=== PATIENT | female | born 1970 | race Caucasian/White ===

== ENCOUNTER 2021-04-10 12:48 | Emergency (ER) | payer BC, SELFPAY ==
[2021-04-10 14:12] LABS: Urine Blood Negative (Negative); Urine Glucose Negative (Negative); Urine Protein Negative (Negative); Urine pH 6.5 (5.0-7.0)
[2021-04-10] MEDS ORDERED: NA CHLORIDE 0.9% 1,000 ML ONE (14:17)
[2021-04-10 14:22] LABS: Hematocrit 40.2 % (36.0-45.0); Lymphocytes % 30.4 % (15.3-44.8); MPV 9.4 fL (7.6-11.3); RBC Red Blood Cell Count 4.58 M/uL (3.86-4.86)
[2021-04-10 14:23] LABS: Basophils % 1.3 % (0-1.3)
[2021-04-10 14:43] LABS: ALT/SGPT 83 U/L (12-78); AST/SGOT 73 U/L (15-37); Alkaline Phosphatase 57 U/L (45-117); BUN Blood Urea Nitrogen 6 mg/dL (7-18); Bicarbonate 28 mmol/L (21-32); Bilirubin Direct < 0.1 mg/dL (0-0.2); Bilirubin Total 0.4 mg/dL (0.2-1.0); Glucose Level 98 mg/dL (74-106); Lipase 97 U/L (73-393); Magnesium 1.6 mg/dL (1.8-2.4); Potassium 3.2 mmol/L (3.5-5.1); Protein, Total 7.8 g/dL (6.4-8.2); Sodium Level 139 mmol/L (136-145)
[2021-04-10 15:08] LABS: Urine Bacteria <20 /HPF (<20); Urine RBC NONE SEEN /HPF (NONE SEEN)
--- NOTE | 2021-04-10 16:28 | RAD REPORT ---
EXAM DESCRIPTION: CT - Abdomen Pelvis W Contrast - 04/10/2021 4:05 pm CLINICAL HISTORY: Abdominal pain. COMPARISON: None. TECHNIQUE: Computed axial tomography of the abdomen and pelvis was obtained. 100 cc Isovue-300 is ad ministered intravenously. Oral contrast was given. All CT scans are performed using dose optimization technique as appropriate and may include automated exposure control or mA/KV adjustment according to patient size. FINDINGS: Fatty liver. Cholecystectomy Small renal cysts. Spleen, adrenals and pancreas unremarkable Spleen, pancreas, adrenals and kidneys appear unremarkable . The appendix is normal caliber. There is no evidence of diverticulitis. The wall of predominantly transverse, descending and sigmoid colon is mildly to moderately thickened. This has the appearance of a colitis Small duodenal diverticulum IMPRESSION: Nelu-hj-owekmbko colitis
--- NOTE | 2021-04-10 17:17 | ER ---
Nurse's Notes [facility] Name: Kayleigh Mason Age: 50 yrs Sex: Female : 1970 Arrival Date: 04/10/2021 Time: 12:53 Bed 27 Private MD: Sriram Gill H Diagnosis: Infectious gastroenteritis and colitis, unspecified;Hypokalemia;Hypomagnesemia Presentation: 04/10 13:25 Chief complaint: Patient states: Diarrhea \T\ upper abdominal pain x 5 days, Dr. Gill sent jl7 me over. Coronavirus screen: Client denies travel out of the [place] in the last 14 days. diarrhea, Client presents with at least one sign or symptom that may indicate coronavirus-19. Standard/surgical mask placed on the client. Provider contacted for isolation considerations. Ebola Screen: No symptoms or risks identified at this time. Initial Sepsis Screen: Does the patient meet any 2 criteria? No. Patient's initial sepsis screen is negative. Does the patient have a suspected source of infection? No. Patient's initial sepsis screen is negative. Risk Assessment: Do you want to hurt yourself or someone else? Patient reports no desire to harm self or others. Onset of symptoms was April 05, 2021. Care prior to arrival: None. 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 - Social history:: Smoking status: Patient reports the use of cigarette tobacco products, denies chronic smoking, but will smoke occasionally. Screenin:12 Abuse screen: Denies threats or abuse. Denies injuries from another. Nutritional ld1 screening: No deficits noted. Tuberculosis screening: No symptoms or risk factors identified. Fall Risk None identified. Assessment: 14:12 General: Appears in no apparent distress. comfortable, Behavior is calm, cooperative, ld1 appropriate for age. Pain: Denies pain. Neuro: Level of Consciousness is awake, alert, obeys commands, Oriented to person, place, time, situation, Appropriate for age. Cardiovascular: Capillary refill < 3 seconds Patient's skin is warm and dry. Respiratory: Airway is patent Respiratory effort is even, unlabored, Respiratory pattern is regular, symmetrical. GI: Abdomen is flat, non-distended, Stools are reported to be diarrhea. Bowel sounds present X 4 quads. Abd is soft Abdomen is tender to palpation X 4 quads. Reports diarrhea. : No signs and/or symptoms were reported regarding the genitourinary system. EENT: No signs and/or symptoms were reported regarding the EENT system. Derm: No signs and/or symptoms reported regarding the dermatologic system. Musculoskeletal: No signs and/or symptoms reported regarding the musculoskeletal system. 15:30 Reassessment: Patient appears in no apparent distress at this time. Patient is alert, ld1 oriented x 3, equal unlabored respirations, skin warm/dry/pink. 16:29 Reassessment: Patient appears in no apparent distress at this time. No changes from ld1 previously documented assessment. Patient and/or family updated on plan of care and expected duration. Pain level reassessed. 17:40 Reassessment: Patient appears in no apparent distress at this time. No changes from ld1 previously documented assessment. Patient and/or family updated on plan of care and expected duration. Pain level reassessed. Patient is alert, oriented x 3, equal unlabored respirations, skin warm/dry/pink. Vital Signs: 13:25 BP 150 / 105; Pulse 85; Resp 15; Temp 97.2(TE); Pulse Ox 99% on R/A; Weight 81.19 kg jl7 (R); Pain 4/10; 14:12 BP 153 / 103; Pulse 82; Resp 18; Pulse Ox 100% on R/A; Pain 0/10; ld1 15:30 BP 146 / 99; Pulse 76; Resp 18; Pulse Ox 100% on R/A; ld1 16:30 BP 155 / 100; Pulse 86; Resp 18; Pulse Ox 100% on R/A; ld1 17:40 BP 158 / 84; Pulse 79; Resp 18; Pulse Ox 100% on R/A; ld1 ED Course: 12:53 Patient arrived in ED. mr 12:53 Sriram Gill DO is Private Physician. mr 13:29 Triage completed. jl7 13:30 Arm band placed on right wrist. jl7 13:35 Jesús Washington PA is PHCP. cp 13:35 Eb Caro MD is Attending Physician. cp 13:51 Coral Barahona, SAIGE is Primary Nurse. ld1 14:12 Patient has correct armband on for positive identification. Placed in gown. Bed in low ld1 position. Call light in reach. Side rails up X2. potline monitor on. Pulse ox on. NIBP on. Door closed. Noise minimized. Warm blanket given. 14:12 No provider procedures requiring assistance completed. Inserted saline lock: 20 gauge ld1 in right antecubital area, using aseptic technique. Blood collected. 14:49 Occult Blood Sent. ld1 14:49 Ova And Parasites Sent. ld1 14:49 Stool Culture Sent. ld1 14:49 Basic Metabolic Panel Sent. ld1 14:49 CBC with Diff Sent. ld1 14:49 Hepatic Function Sent. ld1 14:49 CDIFF Sent. ld1 14:49 Urine Microscopic Only Sent. ld1 16:05 CT Abd/Pelvis - PO and IV Contrast In Process Unspecified. EDMS 17:16 Manoj Colbert MD is Referral Physician. cp 17:47 IV discontinued, intact, bleeding controlled, No redness/swelling at site. ld1 Administered Medications: 14:12 Drug: NS 0.9% 1000 ml Route: IV; Rate: 1 bolus; Site: right antecubital; ld1 15:30 Follow up: Response: No adverse reaction ld1 17:20 Not Given (Physician Discretion): LevaQUIN (levofloxacin) 500 mg PO once cp 17:21 Drug: Magnesium Sulfate 1 grams Route: IVPB; Infused Over: 20 mins; Site: right ld1 antecubital; 17:50 Follow up: Response: No adverse reaction; IV Status: Completed infusion ld1 17:21 Drug: Potassium Effervescent Tablet 50 mEq Route: PO; ld1 17:45 Follow up: Response: No adverse reaction ld1 17:21 Drug: metroNIDAZOLE 500 mg Route: PO; ld1 17:45 Follow up: Response: No adverse reaction ld1 17:40 Not Given (Patient Refused): Cipro (ciprofloxacin) 500 mg PO once ld1 Outcome: 17:17 Discharge ordered by . cp 17:47 Discharged to home ambulatory. ld1 17:47 Condition: stable 17:47 Discharge instructions given to patient, Instructed on discharge instructions, follow up and referral plans. medication usage, Demonstrated understanding of instructions, follow-up care, medications. 17:47 Patient left the ED. ld1 Signatures: Dispatcher [employer] [facility] Flash Divine hou Jesús Washington PA PA cp Leal, Jahala, RN RN jl7 Coral Barahona RN RN ld1
--- NOTE | 2021-04-10 17:18 | EDPHYS ---
Physician Documentation [facility] Name: Kayleigh Mason Age: 50 yrs Sex: Female : 1970 Arrival Date: 04/10/2021 Time: 12:53 Bed 27 Private MD: Sriram Gill H ED Physician Eb Caro HPI: 04/10 13:45 This 50 yrs old Female presents to ER via Ambulatory with complaints of cp Abdominal Pain, Diarrhea. 13:45 The patient presents with abdominal pain in the upper abdomen. Onset: The cp symptoms/episode began/occurred 5 day(s) ago. Associated signs and symptoms: Pertinent positives: anorexia, diarrhea, Pertinent negatives: nausea and vomiting, blood in stools, constipation, fever. The symptoms are described as waxing/waning. 13:45 Severity of pain: in the emergency department the pain has improved moderately. 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 - Social history:: Smoking status: Patient reports the use of cigarette tobacco products, denies chronic smoking, but will smoke occasionally. ROS: 13:50 Constitutional: Negative for body aches, chills, fever, poor PO intake. cp 13:50 Cardiovascular: Negative for chest pain, palpitations. cp 13:50 Respiratory: Negative for cough, shortness of breath, wheezing. 13:50 Eyes: Negative for injury, pain, redness, and discharge. cp 13:50 Abdomen/GI: Positive for abdominal pain, diarrhea, Negative for vomiting, constipation, cp black/tarry stool, rectal bleeding. 13:50 Back: Positive for radiated pain. 13:50 Neuro: Negative for altered mental status, headache, weakness. 13:50 All other systems are negative. Exam: 13:55 Constitutional: The patient appears in no acute distress, alert, awake, cp non-diaphoretic, non-toxic, well developed, well nourished. 13:55 Head/Face: Normocephalic, atraumatic. cp 13:55 Eyes: Periorbital structures: appear normal, Conjunctiva: normal, no exudate, no injection, Sclera: no appreciated abnormality, Lids and lashes: appear normal, bilaterally. 13:55 ENT: External ear(s): are unremarkable, Nose: is normal, Mouth: Lips: moist, Oral mucosa: moist, Posterior pharynx: Airway: no evidence of obstruction, patent. 13:55 Chest/axilla: Inspection: normal. 13:55 Cardiovascular: Rate: normal, Rhythm: regular. 13:55 Respiratory: the patient does not display signs of respiratory distress, Respirations: normal, no use of accessory muscles, no retractions, labored breathing, is not present, Breath sounds: are clear throughout, no decreased breath sounds, no stridor, no wheezing. 13:55 Abdomen/GI: Inspection: abdomen appears normal, Bowel sounds: active, all quadrants, Palpation: soft, in all quadrants, mild abdominal tenderness, in the right upper quadrant and left upper quadrant, rebound tenderness, is not appreciated, voluntary guarding, is not appreciated, involuntary guarding, is not appreciated. 13:55 Back: pain, that is very mild, of the mid back area, ROM is normal. Vital Signs: 13:25 BP 150 / 105; Pulse 85; Resp 15; Temp 97.2(TE); Pulse Ox 99% on R/A; Weight 81.19 kg jl7 (R); Pain 4/10; 14:12 BP 153 / 103; Pulse 82; Resp 18; Pulse Ox 100% on R/A; Pain 0/10; ld1 15:30 BP 146 / 99; Pulse 76; Resp 18; Pulse Ox 100% on R/A; ld1 16:30 BP 155 / 100; Pulse 86; Resp 18; Pulse Ox 100% on R/A; ld1 17:40 BP 158 / 84; Pulse 79; Resp 18; Pulse Ox 100% on R/A; ld1 MDM: 13:44 Patient medically screened. cp 14:00 Differential diagnosis: appendicitis, bowel obstruction, diverticulitis, gastritis, cp pancreatitis, Ureterolithiasis, urinary tract infection. 17:15 Data reviewed: vital signs, nurses notes, lab test result(s), radiologic studies, CT cp scan, and as a result, I will discharge patient. 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 ED course: VSS. Patient appears nontoxic. Will discharge to home for continued monitoring. 04/10 13:50 Order name: Basic Metabolic Panel 04/10 13:50 Order name: CBC with Diff 04/10 13:50 Order name: Hepatic Function 04/10 13:50 Order name: Lipase; Complete Time: 15:21 04/10 13:50 Order name: Occult Blood 04/10 13:50 Order name: Ova And Parasites 04/10 13:50 Order name: Stool Culture 04/10 13:50 Order name: CDIFF 04/10 13:50 Order name: Urine Microscopic Only; Complete Time: 15:21 04/10 13:50 Order name: Magnesium; Complete Time: 15:21 04/10 15:22 Interpretation: Abnormal: MG 1.6. 04/10 13:51 Order name: Basic Metabolic Panel; Complete Time: 15:21 EDME 04/10 13:51 Order name: CBC with Automated Diff; Complete Time: 14:42 EDME 04/10 14:42 Interpretation: Reviewed. 04/10 13:51 Order name: Liver (Hepatic) Function; Complete Time: 15:21 EDME 04/10 15:22 Interpretation: Normal except: AST 73; ALT 83; GLOB 3.8. 04/10 14:12 Order name: Urine Dipstick-Ancillary; Complete Time: 14:42 EDME 04/10 13:50 Order name: IV Saline Lock; Complete Time: 14:12 04/10 13:50 Order name: Labs collected and sent; Complete Time: 14:12 04/10 13:50 Order name: Urine Dipstick-Ancillary (obtain specimen); Complete Time: 14:12 04/10 14:13 Order name: Urine Dipstick-Ancillary EDME 04/10 14:14 Order name: CT Abd/Pelvis - PO and IV Contrast; Complete Time: 16:39 cp Administered Medications: 14:12 Drug: NS 0.9% 1000 ml Route: IV; Rate: 1 bolus; Site: right antecubital; ld1 15:30 Follow up: Response: No adverse reaction ld1 17:20 Not Given (Physician Discretion): LevaQUIN (levofloxacin) 500 mg PO once cp 17:21 Drug: Magnesium Sulfate 1 grams Route: IVPB; Infused Over: 20 mins; Site: right ld1 antecubital; 17:50 Follow up: Response: No adverse reaction; IV Status: Completed infusion ld1 17:21 Drug: Potassium Effervescent Tablet 50 mEq Route: PO; ld1 17:45 Follow up: Response: No adverse reaction ld1 17:21 Drug: metroNIDAZOLE 500 mg Route: PO; ld1 17:45 Follow up: Response: No adverse reaction ld1 17:40 Not Given (Patient Refused): Cipro (ciprofloxacin) 500 mg PO once ld1 Disposition: 18:32 Co-signature as Attending Physician, Eb Caro MD. rn Disposition Summary: 04/10/21 17:17 Discharge Ordered Location: Home cp Problem: new cp Symptoms: have improved cp Condition: Stable cp Diagnosis - Infectious gastroenteritis and colitis, unspecified cp - Hypokalemia cp - Hypomagnesemia cp Followup: cp - With: Manoj Colbert MD - When: 2 - 3 days - Reason: Recheck today's complaints Discharge Instructions: - Discharge Summary Sheet cp - Food Choices to Help Relieve Diarrhea, Adult cp - Diarrhea, Adult cp - Colitis cp Forms: - Medication Reconciliation Form cp - Thank You Letter cp - Antibiotic Education cp - Prescription Opioid Use cp Prescriptions: - Zofran 4 mg Oral Tablet - take 1 tablet by ORAL route every 12 hours As needed; 20 tablet; Refills: 0, cp Product Selection Permitted - Potassium Chloride 10 mEq Oral capsule, extended release - take 1 tablet by ORAL route every 12 hours for 5 days; 10 tablet; Refills: 0, cp Product Selection Permitted - Metronidazole 500 mg Oral Tablet - take 1 tablet by ORAL route every 8 hours; 30 tablet; Refills: 0, Product cp Selection Permitted - Cipro 500 mg Oral Tablet - take 1 tablet by ORAL route every 12 hours for 10 days; 20 tablet; Refills: 0, cp Product Selection Permitted Signatures: Dispatcher [employer] Eb Landry MD MD rn Page, Corey, PA PA Lyndsay Lopez RN RN jl7 Dibbern, Coral, RN RN ld1 Corrections: (The following items were deleted from the chart) 13:51 13:44 This 50 yrs old Female presents to ER via Ambulatory with complaints of cp Abdominal Pain, Diarrhea. cp
[2021-04-10] MEDS ORDERED: POTASSIUM 25 MEQ EFFERV TAB ONE (17:31)
[2021-04-10] MEDS ORDERED: levoFLOXacin 500 MG TAB ONE (17:31)
[2021-04-10] MEDS ORDERED: metroNIDAZOLE 500 MG TABLET ONE (17:31)
[2021-04-10] MEDS ORDERED: MAGNESIUM SULFATE 1 gm IVPB 1 GM/100 ML BAG IV ONE (17:31)
[2021-04-10 18:06] VITALS: TEMP 97.2
[2021-04-10 18:11] VITALS: O2SAT 100
[2021-04-10 18:16] VITALS: BP 158/84
[2021-04-11 08:02] LABS: C.diff Antigen/Toxin Ag neg : Tox neg (NEG : NEG)
== END 2021-04-10 17:47 | disposition home or self-care (01) ==
LOC: ER 12:48
DX: A09 Infectious gastroenteritis and colitis, unspecified (principal); E87.6 Hypokalemia; E83.42 Hypomagnesemia; F17.210 Nicotine dependence, cigarettes, uncomplicated; Z88.0 Allergy status to penicillin
CPT/HCPCS: 36415; 74177; 80048; 80076; 81003; 81015; 82274; 83690; 83735; 85025; 87045; 87046; 87177; 87209; 87324; 87449; 96365; 99284; J3475; J7030; Q9967

== ENCOUNTER 2021-05-27 13:13 | Emergency (ER) | payer SELFPAY ==
[2021-05-27] MEDS ORDERED: HYDROCODONE/APAP 5/325 MG TAB ONE (15:37)
--- NOTE | 2021-05-27 16:10 | RAD REPORT ---
EXAM DESCRIPTION: RAD - Wrist Left 3 View - 05/27/2021 3:40 pm CLINICAL HISTORY: PAIN COMPARISON: No comparisons FINDINGS: No left wrist fracture identified. No malalignment. IMPRESSION: Unremarkable left wrist.
--- NOTE | 2021-05-27 16:31 | ER ---
Nurse's Notes [facility] Name: Kayleigh Mason Age: 50 yrs Sex: Female : 1970 Arrival Date: 05/27/2021 Time: 13:17 Bed DX1 Private MD: Diagnosis: Sprain of unspecified part of left wrist and hand Presentation: 05/27 14:05 Chief complaint: Patient states: L arm pain that began yesterday after putting a sale ss sign in a yard. Coronavirus screen: Client denies travel out of the [place] in the last 14 days. Ebola Screen: Patient denies exposure to infectious person. No symptoms or risks identified at this time. Initial Sepsis Screen: Does the patient meet any 2 criteria? No. Patient's initial sepsis screen is negative. Does the patient have a suspected source of infection? No. Patient's initial sepsis screen is negative. Risk Assessment: Do you want to hurt yourself or someone else? Patient reports no desire to harm self or others. Onset of symptoms was May 26, 2021. 14:05 Method Of Arrival: Ambulatory ss 14:05 Acuity: MONIQUE 4 ss Historical: - Allergies: 14:07 PENICILLINS; ss - PMHx: 14:07 Hypothyroidism; ibs; ss - PSHx: 14:07 Cholecystectomy; hysterectomy; Thyroidectomy; ss - Immunization history:: Client reports having NOT received the Covid vaccine. - Social history:: Smoking status: Patient reports the use of cigarette tobacco products, denies chronic smoking, but will smoke occasionally. Screenin:51 Abuse screen: Denies threats or abuse. Denies injuries from another. Nutritional ss screening: No deficits noted. Tuberculosis screening: Never had TB. Fall Risk None identified. Assessment: 14:51 General: Appears uncomfortable, Behavior is calm, cooperative. Pain: Complains of pain ss in left wrist and palmar aspect of left forearm Pain currently is 8 out of 10 on a pain scale. Neuro: Level of Consciousness is awake, alert, obeys commands, Oriented to person, place, time, situation. Cardiovascular: Pulses are palpable in right radial artery and left radial artery. Respiratory: Airway is patent Respiratory effort is even, unlabored, Respiratory pattern is regular, symmetrical. EENT: Oral mucosa is moist. Derm: Skin is intact, is healthy with good turgor, Skin is dry, Skin is pink, warm \T\ dry. normal. Musculoskeletal: Range of motion: limited in left wrist Swelling absent. Vital Signs: 13:50 BP 126 / 87; Pulse 85; Resp 17; Temp 96.8(TE); Pulse Ox 100% on R/A; Weight 80.29 kg; 5 Height 5 ft. 6 in. (167.64 cm); Pain 8/10; 13:50 Body Mass Index 28.57 (80.29 kg, 167.64 cm) [facility] ED Course: 13:17 Patient arrived in ED. mr 14:06 Triage completed. ss 14:07 Arm band placed on right wrist. ss 14:51 Quentin Guzman NP is [facility]. pm1 14:51 Gumaro Enciso MD is Attending Physician. pm1 14:51 Patient has correct armband on for positive identification. Bed in low position. Call ss light in reach. 15:16 Hali Boston RN is Primary Nurse. 15:16 Sling applied to left arm. [facility] 15:40 Wrist Left (3 View) XRAY In Process Unspecified. EDMS 16:22 No provider procedures requiring assistance completed. Patient did not have IV access ss during this emergency room visit. 16:47 Velcro wrist splint applied to left wrist. ss Administered Medications: 15:17 Drug: HYDROcodone-acetaminophen 5 mg-325 mg 1 tabs Route: PO; ss 16:48 Follow up: Response: No adverse reaction; Pain is decreased ss Outcome: 16:30 Discharge ordered by MD. pm1 16:47 Discharged to home ambulatory. 16:47 Condition: good 16:47 Discharge instructions given to patient, Instructed on discharge instructions, follow up and referral plans. Demonstrated understanding of instructions, follow-up care, Prescriptions given X 2. 16:48 Patient left the ED. ss Signatures: Dispatcher [employer] EDOH VidalesDivine burciaga mr Hali Boston RN RN Quentin Guzman NP SENIOR [employer]IS[employer] NETWORK ENGINEER pm[address] Helen M[address] [facility]
--- NOTE | 2021-05-27 16:31 | EDPHYS ---
Physician Documentation [facility] Name: Kayleigh Mason Age: 50 yrs Sex: Female : 1970 Arrival Date: 05/27/2021 Time: 13:17 Bed DX1 Private MD: ED Physician Gumaro Enciso HPI: 05/27 15:01 This 50 yrs old Female presents to ER via Ambulatory with complaints of Arm pm1 Injury, Hand Injury. 15:01 The patient or guardian complains of pain, that is acute. The complaints affect the pm1 left wrist. Context: The problem was sustained outdoors. Onset: The symptoms/episode began/occurred yesterday. Treatment prior to arrival includes: no previous treatment. Modifying factors: The symptoms are alleviated by remaining still, the symptoms are aggravated by movement. Associated signs and symptoms: Pertinent positives: pain, Tenderness, of the left wrist, Pertinent negatives: deformity. Severity of symptoms: in the emergency department the symptoms are actually worse. The patient has not experienced similar symptoms in the past. The patient has not recently seen a physician. 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 The sign did not move, she let go of her right hand but her left hand stayed in the same location. Patient is presenting to the ER with left wrist pain that radiates up her arm. Historical: - Allergies: 14:07 PENICILLINS; ss - PMHx: 14:07 Hypothyroidism; ibs; ss - PSHx: 14:07 Cholecystectomy; hysterectomy; Thyroidectomy; ss - Immunization history:: Client reports having NOT received the Covid vaccine. - Social history:: Smoking status: Patient reports the use of cigarette tobacco products, denies chronic smoking, but will smoke occasionally. ROS: 15:01 Constitutional: Negative for fever, chills, and weight loss, Cardiovascular: Negative pm1 for chest pain, palpitations, and edema, Respiratory: Negative for shortness of breath, cough, wheezing, and pleuritic chest pain. 15:01 Skin: Negative for injury, rash, and discoloration, Neuro: Negative for headache, weakness, numbness, tingling, and seizure. 15:01 Abdomen/GI: Negative for abdominal pain, nausea, vomiting, diarrhea, and constipation. 15:01 MS/extremity: Positive for pain, of the left wrist, Negative for decreased range of motion, deformity. 15:01 All other systems are negative. Exam: 15:01 Constitutional: This is a well developed, well nourished patient who is awake, alert, pm1 and in no acute distress. Head/Face: Normocephalic, atraumatic. 15:01 Skin: Warm, dry with normal turgor. Normal color with no rashes, no lesions, and no evidence of cellulitis. 15:01 Cardiovascular: Exam negative for acute changes, Rate: normal, Rhythm: regular, Pulses: no pulse deficits are appreciated. 15:01 Respiratory: Exam negative for acute changes, respiratory distress, shortness of breath. 15:01 Musculoskeletal/extremity: Extremities: grossly normal except: noted in the left wrist: tenderness, There is no evidence of decreased ROM, deformity, ROM: full active range of motion, in the left hand, anterior aspect of left shoulder and left antecubital area, full passive range of motion, in the left hand, anterior aspect of left shoulder, left antecubital area and left wrist, Circulation is intact in all extremities. Sensation intact. 15:01 Neuro: Exam negative for acute changes, Orientation: is normal, Mentation: is normal, Motor: is normal, moves all fours. Vital Signs: 13:50 BP 126 / 87; Pulse 85; Resp 17; Temp 96.8(TE); Pulse Ox 100% on R/A; Weight 80.29 kg; 5 Height 5 ft. 6 in. (167.64 cm); Pain 8/10; 13:50 Body Mass Index 28.57 (80.29 kg, 167.64 cm) [facility] Procedures: 16:29 Splinting: Splint applied to left wrist using wrist splint, applied by myself. Examined pm1 by me, post splint application: neurovascular intact, 2+ distal pulses palpable, brisk capillary refill noted, Patient tolerated well. MDM: 14:55 Patient medically screened. pm1 16:04 Data reviewed: vital signs. Data interpreted: Pulse oximetry: on room air is 100 %. pm1 Interpretation: normal. Counseling: I had a detailed discussion with the patient and/or guardian regarding: the historical points, exam findings, and any diagnostic results supporting the discharge/admit diagnosis, radiology results, the need for outpatient follow up, a orthopedic surgeon, to return to the emergency department if symptoms worsen or persist or if there are any questions or concerns that arise at home. 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 pm1 05/27 15:01 Order name: Wrist Left (3 View) XRAY; Complete Time: 16:29 pm1 05/27 14:55 Order name: Sling; Complete Time: 15:16 pm1 05/27 16:05 Order name: Wrist Splint; Complete Time: 16:24 pm1 Administered Medications: 15:17 Drug: HYDROcodone-acetaminophen 5 mg-325 mg 1 tabs Route: PO; ss 16:48 Follow up: Response: No adverse reaction; Pain is decreased ss Disposition: 18:35 Co-signature as Attending Physician, Gumaro Enciso MD I agree with the assessment and tw4 plan of care. Disposition Summary: 05/27/21 16:30 Discharge Ordered Location: Home pm1 Problem: new pm1 Symptoms: have improved pm1 Condition: Stable pm1 Diagnosis - Sprain of unspecified part of left wrist and hand pm1 Followup: pm1 - With: Emergency Department - When: As needed - Reason: Worsening of condition Followup: pm1 - With: Private Physician - When: 2 - 3 days - Reason: Recheck today's complaints, Continuance of care, Re-evaluation by your physician Discharge Instructions: - Discharge Summary Sheet pm1 - Wrist Splint, Adult pm1 - How to Use a Sling pm1 - Wrist Sprain, Adult pm1 Forms: - Medication Reconciliation Form pm1 - Thank You Letter pm1 - Antibiotic Education pm1 - Prescription Opioid Use pm1 Prescriptions: - acetaminophen-codeine 300-15 mg Oral tablet - take 2 tablet by ORAL route every 6 hours As needed as needed; 20 tablet; pm1 Refills: 0, Product Selection Permitted - Diclofenac Sodium 75 mg Oral tablet,delayed release (DR/EC) - take 1 tablet by ORAL route 2 times per day As needed; 30 tablet; Refills: 0, pm1 Product Selection Permitted Signatures: Dispatcher [employer] Hali Austin RN RN ss Quentin Guzman, REPORTING CONSULTANT REPORTING CONSULTANT pm1 Gumaro Enciso MD MD tw4
[2021-05-27 16:59] VITALS: BP 126/87; TEMP 96.8; O2SAT 100
== END 2021-05-27 16:48 | disposition home or self-care (01) ==
LOC: ER 13:13
DX: S63.92XA Sprain of unspecified part of left wrist and hand, initial encounter (principal); F17.210 Nicotine dependence, cigarettes, uncomplicated; E03.9 Hypothyroidism, unspecified; Z88.0 Allergy status to penicillin
CPT/HCPCS: 99284